=== PATIENT | male | born 1995 | race Two or more races ===

== ENCOUNTER → 2019-11-17 | Emergency (ER) | payer OTHER ==
[~2019-11-17] VITALS: Ht 175.3 cm; Wt 63.5 kg
[~2019-11-17] MED LIST: CEFADROXIL500 MG PO
== END | disposition designated cancer center or children's hospital (05) ==
LOC: ER 12:23
DX: S72.491A Other fracture of lower end of right femur, initial encounter for closed fracture (principal); W51.XXXA Accidental striking against or bumped into by another person, initial encounter; Y93.66 Activity, soccer; Y92.89 Other specified places as the place of occurrence of the external cause; Y99.8 Other external cause status